=== PATIENT | female | born 1970 | race Caucasian/White ===

== ENCOUNTER 2020-03-22 17:02 | Emergency (ER) | payer BC ==
--- NOTE | 2020-03-22 21:01 | RAD ---
LEFT SHOULDER THREE VIEWS: 03/22/20 No fracture, dislocation, or AC joint widening was seen. Some minor bony spurring is seen at the AC j oint. The scapula and visible adjacent ribs appear intact. IMPRESSION: No acute findings. POS: HOME
--- NOTE | 2020-03-22 21:02 | RAD ---
LEFT HAND THREE VIEWS: 03/22/20 No fracture was seen. The carpal relationships seem normal. The distal radius and ulna appear intact as well. IMPRESSION: No acute findings. POS: HOME
== END 2020-03-22 18:15 | disposition home or self-care (01) ==
LOC: BURERS 17:02
DX: S60.212A Contusion of left wrist, initial encounter (principal); E78.5 Hyperlipidemia, unspecified; W01.0XXA Fall on same level from slipping, tripping and stumbling without subsequent striking against object, initial encounter

== ENCOUNTER 2025-08-12 16:28 | Emergency (ER) | payer BC ==
[~2025-08-12 16:28] MED LIST: Iopamidol 370 76% 100 ML VIAL ONE
[2025-08-12 16:48] LABS: #Basophils 0.1 thou/uL (0.0-0.2); #Eosinophils 0.3 thou/uL (0.0-0.7); #Lymphocytes 2.2 thou/uL (1.20-3.40); #Monocytes 0.4 thou/uL (0.11-0.59); #Neutrophils 3.4 thou/uL (1.40-6.50); %Basophils 2.0 % (0.0-1.0); %Eosinophils 4.0 % (0.0-10.0); %Lymphocytes 34.4 % (21.0-51.0); %Monocytes 6.3 % (0.0-10.0); %Neutrophils 53.3 % (42.0-75.0); Hematocrit 48.7 % (36.0-47.0); Hemoglobin 16.1 g/dL (12.0-16.0); Mean Corpuscular Hemoglobin 31.4 pg (27.0-31.0); Mean Corpuscular Volume 94.8 fl (78.0-98.0); Platelet Count 361 10x3/uL (130-400); Red Blood Cell (RBC) Count 5.13 mill/uL (4.20-5.40); White Blood Cell (WBC) Count 6.5 10x3/uL (4.8-10.8)
[2025-08-12 17:02] LABS: ALT (SGPT) 24 U/L (Less than 34); AST (SGOT) 30 U/L (11-34); Albumin 4.5 g/dL (3.1-4.5); Alkaline Phosphatase 72 U/L (40-110); Anion Gap 16 mmol/L (10-20); BUN (Urea Nitrogen) 12 mg/dL (9.8-20.1); Bilirubin, Total 0.4 mg/dL (0.3-1.2); Calc. Creatinine Clearance 0 mL/min (70-130); Calcium 10.0 mg/dL (7.8-10.44); Carbon Dioxide 25 mmol/L (22-29); Chloride 106 mmol/L (98-107); Globulin 3.0 g/dL (2.4-3.5); Glucose 127 mg/dL (70-105); Lipase 31 U/L (8-78); Magnesium 2.2 mg/dL (1.6-2.6); Potassium 3.8 mmol/L (3.5-5.1); Sodium 143 mmol/L (136-145)
[2025-08-12 17:03] LABS: Troponin I 0.010 ng/mL (< 0.028)
== END 2025-08-12 19:36 | disposition short-term general hospital (02) ==
LOC: BURERS 16:28
DX: R10.9 Unspecified abdominal pain (principal)
CPT/HCPCS: 36415; 74177; 80053; 83605; 83690; 83735; 84484; 85025; 96374; 96375; 96376; J2550; J3010; Q9967